=== PATIENT | female | born 1990 | race Caucasian/White ===

== ENCOUNTER 2017-03-13 15:43 | Emergency (ER) | payer OTHER, MEDICAID ==
[2017-03-13 15:52] VITALS: RESP 20
--- NOTE | 2017-03-13 16:15 | EDPHY ---
H & P Stated Complaint: R EYE REDNESS/DRNG HAS APPT WITH [facility] FOR TOMORROW - Personal History LMP (Females 10-55): 22-28 Days Ago Current Tetanus/Diphtheria Vaccine: Yes - Medical/Surgical History Hx Asthma: No Hx Chronic Respiratory Disease: No Hx Diabetes: No Hx Cardiac Disease: No Hx Renal Disease: No Hx Cirrhosis: No Hx Alcoholism: No Hx HIV/AIDS: No Hx Splenectomy or Spleen Trauma: No Other PMH: BRACHIAL CLEFT CYST REMOVAL/SEPTOPLASTY - Social History Smoking Status: Never smoked Time Seen by Provider: 03/13/17 15:57 HPI/ROS: CHIEF COMPLAINT: Discharge from the right medial canthus post septoplasty HISTORY OF PRESENT ILLNESS: 26-year-old female postop day 4 post septoplasty and right brachial cleft surgery performed by Dr. Philip Ludwig Otolaryngology at [facility]. She was seen on postop day 2 and head right nasal packing and aspiration of hematomas and has an appointment tomorrow ( Tuesday). She is in the ER today complaining of pain as well as purulent discharge from the medial canthus of her right eye. She felt a subjective fever. No nausea or vomiting. No myalgias. Currently on daily clindamycin Patient feels dehydrated and is requesting IV hydration noting that she has had decreased oral intake secondary to odynophagia postoperatively. No dysphagia. REVIEW OF SYSTEMS: A ten point review of systems was performed and is negative with the exception of the items mentioned in the HPI PAST MEDICAL & SURGICAL HISTORY: Postop day 4 post ENT surgery see HPI SOCIAL HISTORY:nonsmoker PHYSICAL EXAM (Prior to examination, patient consented to physical exam, hands were washed and my usual and customary physical exam procedures followed) 1) GENERAL: Well-developed, well-nourished, alert and oriented. Appears to be in no acute distress. 2) HEAD: Normocephalic, atraumatic 3) HEENT: Pupils equal, round, reactive to light bilaterally. Purulent discharge right medial canthus of I would noted. Nasal packing on the right side in place. Mucous on the left which is aspirated. Soft tissue swelling noted . facial features symmetrical. 4) NECK: Full range of motion, no meningeal signs. 5) LUNGS: Clear auscultation bilaterally 6) HEART: Regular rate and rhythm, no murmur, no heave, no gallop. 7) ABDOMEN: No guarding, no rebound, no focal tenderness,, 8) MUSCULOSKELETAL: No peripheral edema or discoloration. 9) BACK: No CVA tenderness 10) SKIN: No rash, no petechiae. DIFFERENTIAL DIAGNOSIS: In no particular order including but not limited to conjunctivitis, cellulitis, postoperative infection (Austin Harrison) Constitutional: Initial Vital Signs Temperature (C) 37.2 C 03/13/17 15:48 Heart Rate 94 03/13/17 15:48 Respiratory Rate 20 03/13/17 15:48 Blood Pressure 125/90 H 03/13/17 15:48 O2 Sat (%) 93 03/13/17 15:48 O2 Delivery Mode Room Air Allergies/Adverse Reactions: cefuroxime [From Ceftin] Allergy (Verified 03/13/17 15:48) Home Medications: Medication Instructions Recorded Clindamycin 03/13/17 Ondansetron Odt [Zofran Odt] 4 mg PO Q4PRN PRN #10 tab 03/13/17 Oxycodone HCl/Acetaminophen 1 each PO Q6 PRN #7 tablet 03/13/17 [Oxycodone-Acetaminophen 10-325] Vicodin 5-300 mg Tablet 03/13/17 Medical Decision Making ED Course/Re-evaluation: The patient was evaluated and managed by the physician's campus administrative assistant. My cosignature indicates that I reviewed the chart and I agree with the findings and plan of care as documented. I am the secondary supervising physician. ( Francine Pritchett) 4:33 p.m.: Phone consultation with Dr. Hare, on-call ENT at [facility] for Dr. Ludwig recommended leaving the splints in place that she has an appointment tomorrow (Tuesday), started the patient on Afrin and antibiotic eyedrops. Discussed with patient she is agreeable with this plan. She did request IV hydration and she feels subjectively volume depleted. This was administered to her secondary to suspected volume depletion 5:40 p.m.: Patient requesting further IV hydration and further analgesia prior to discharge (Austin Harrison) - Data Points Medications Given: Discontinued Medications Hydromorphone HCl (Dilaudid) 0.5 mg IVP EDNOW ONE Stop: 03/13/17 16:45 Last Admin: 03/13/17 16:50 Dose: 0.5 mg Hydromorphone HCl (Dilaudid) 1 mg IVP EDNOW ONE Stop: 03/13/17 17:37 Last Admin: 03/13/17 17:43 Dose: 1 mg Sodium Chloride (Ns) 1,000 mls @ 0 mls/hr IV ONCE ONE PRN Reason: Wide Open Stop: 03/13/17 16:45 Last Admin: 03/13/17 16:50 Dose: 1,000 mls Sodium Chloride (Ns) 1,000 mls @ 0 mls/hr IV ONCE ONE PRN Reason: Wide Open Stop: 03/13/17 17:37 Last Admin: 03/13/17 17:43 Dose: 1,000 mls Ofloxacin (Ocuflox 0.3% Opht Drops [place]) 1 btl TAKEHOME EDNOW ONE Stop: 03/13/17 16:45 Last Admin: 03/13/17 17:13 Dose: 1 btl Ondansetron HCl (Zofran) 4 mg IVP EDNOW ONE Stop: 03/13/17 16:45 Last Admin: 03/13/17 16:50 Dose: 4 mg Oxymetazoline HCl (Afrin Nasal [place]) 2 sprays EACH[place] EDNOW ONE Stop: 03/13/17 16:45 Last Admin: 03/13/17 17:14 Dose: 2 spray Departure - Departure Disposition: Home, Routine, Self-Care Clinical Impression: Volume depletion, Postoperative pain Condition: Good Instructions: Dehydration (ED) Additional Instructions: Keep your appointment tomorrow with your ENT [facility]. Referrals: Keep, your appointment with tomorrow [Other] - As per Instructions Prescriptions: Ondansetron Odt [Zofran Odt] 4 mg PO Q4PRN PRN #10 tab PRN Reason: Nausea Oxycodone HCl/Acetaminophen [Oxycodone-Acetaminophen 10-325] 1 each PO Q6 PRN # 7 tablet PRN Reason: Pain
[2017-03-13] MEDS ORDERED: OXYMETAZOLINE 30 ML NASAL SPRAY EACHNARE ONE (16:44)
[2017-03-13] MEDS ORDERED: NS 1,000 ML IV ONE ×2 (16:44→17:36)
[2017-03-13] MEDS ORDERED: OFLOXACIN 0.3% SOLN PREPACK OPHT.BTL TAKEHOME ONE (16:44)
[2017-03-13] MEDS ORDERED: ONDANSETRON 4 MG/2 ML VIAL IVP ONE (16:44)
[2017-03-13] MEDS ORDERED: HYDROmorphONE/DILAUDID 1 MG/ML SYR IVP ONE ×2 (16:44→17:36)
[2017-03-13 18:31] VITALS: BP 128/96; PULSE 78; TEMP 98.2; O2SAT 99
== END 2017-03-13 19:00 | disposition home or self-care (01) ==
DX: G89.18 Other acute postprocedural pain (principal); E86.9 Volume depletion, unspecified; J34.89 Other specified disorders of nose and nasal sinuses
CPT/HCPCS: 96374; J1170; J2405